=== PATIENT | male | born 1995 | race Caucasian/White ===

== ENCOUNTER 2018-12-03 11:25 | Emergency (ER) | payer OTHER, SELFPAY ==
[~2018-12-03] VITALS: Ht 185.4 cm; Wt 134.0 kg
[2018-12-03] MEDS ORDERED: METF-414 PO (11:30)
[2018-12-03] MEDS ORDERED: OLANZAPINE 10MG TABLET PO STA (11:36)
[2018-12-03] MEDS ORDERED: LORAZEPAM 1MG TABLET PO ONE (11:45)
[2018-12-03 11:49] VITALS: BP 115/75
[2018-12-03 18:46] LABS: BASOPHILS % 0.2 % (0.0-2.0); EOSINOPHILS % 0.7 % (0.0-5.0); HEMATOCRIT. 35.9 % (42.0-52.0); HEMOGLOBIN. 11.7 g/dL (14.0-18.0); LYMPHOCYTES % 39.4 % (20.0-50.0); MEAN CORPUSCULAR HEMOGLOBIN 27.7 pg (28.0-32.0); MONOCYTES % 11.8 % (2.0-8.0); NEUTROPHILS % 47.9 % (40.0-76.0); PLATELET 161 x1000/uL (130-400); RED BLOOD CELL COUNT 4.22 mill/uL (4.7-6.1); RED CELL DISTRIBUTION WIDTH 14.6 % (11.6-14.6)
[2018-12-03 18:51] LABS: CHLORIDE 110 mEq/L (98-107)
[2018-12-03 18:55] LABS: ETHANOL BLOOD < 10 mg/dL
== END 2018-12-03 11:59 | disposition home or self-care (01) ==
LOC: ER 11:25
DX: F29 Unspecified psychosis not due to a substance or known physiological condition (principal); F31.9 Bipolar disorder, unspecified; E11.9 Type 2 diabetes mellitus without complications; I10 Essential (primary) hypertension
CPT/HCPCS: 36415; 80320; 99284; G0480

== ENCOUNTER 2018-12-03 17:19 | Emergency (ER) | payer SELFPAY ==
[~2018-12-03] VITALS: Ht 188 cm; Wt 113.0 kg
[~2018-12-03 17:19] MED LIST: METF-414 PO
[2018-12-03 21:17] LABS: BASOPHILS % 1.3 % (0.0-2.0); EOSINOPHILS % 1.4 % (0.0-5.0); HEMATOCRIT. 35.3 % (42.0-52.0); HEMOGLOBIN. 11.6 g/dL (14.0-18.0); LYMPHOCYTES % 45.5 % (20.0-50.0); MEAN CORPUSCULAR HEMOGLOBIN 27.7 pg (28.0-32.0); MEAN CORPUSCULAR VOLUME 84.5 fL (80.0-94.0); MEAN PLATELET VOLUME 11.5 fl (7.4-10.4); MONOCYTES % 10.7 % (2.0-8.0); NEUTROPHILS % 41.1 % (40.0-76.0); PLATELET 167 x1000/uL (130-400); RED BLOOD CELL COUNT 4.18 mill/uL (4.7-6.1); RED CELL DISTRIBUTION WIDTH 14.4 % (11.6-14.6)
[2018-12-03 21:22] LABS: CHLORIDE 109 mEq/L (98-107)
[2018-12-03 21:26] LABS: ETHANOL BLOOD < 10 mg/dL
[2018-12-03 21:29] LABS: CLARITY URINE TURBID (CLEAR); COLOR URINE DARK YELLOW (YELLOW); KETONES URINE NEGATIVE (NEGATIVE); LEUKOCYTE ESTERASE URINE NEGATIVE (NEGATIVE); NITRITE URINE NEGATIVE (NEGATIVE); OCCULT BLOOD URINE NEGATIVE (NEGATIVE); PH URINE 5.5 (4.5-8.0); PROTEIN URINE NEGATIVE (NEGATIVE); SPECIFIC GRAVITY URINE 1.033 (1.005-1.030); UROBILINOGEN URINE 0.2 E.U./dL (0.2-1.0)
[2018-12-03 21:44] LABS: *AMPHETAMINES SCREEN URINE PRESUMTIVE POSITIVE (NEGATIVE); *BARBITURATES SCREEN URINE NEGATIVE (NEGATIVE); *BENZODIAZEPINES SCREEN URINE NEGATIVE (NEGATIVE); *COCAINE SCREEN URINE NEGATIVE (NEGATIVE)
[2018-12-03 21:45] LABS: CANNABINOID URINE SCREEN PRESUMTIVE POSITIVE (NEGATIVE); METHADONE URINE SCREEN NEGATIVE (NEGATIVE); OPIATES URINE SCREEN NEGATIVE (NEGATIVE); PHENCYCLIDINE URINE SCREEN NEGATIVE (NEGATIVE)
[2018-12-04] MEDS ORDERED: OLANZAPINE 5MG TABLET ODT PO ONE (20:45)
[2018-12-05] MEDS ORDERED: LORAZEPAM 1MG TABLET PO ONE (10:00)
[2018-12-05] MEDS ORDERED: BENZTROPINE MESYLATE 1MG/1ML 2ML AMP IM ONE (10:00)
[2018-12-05] MEDS ORDERED: HALOPERIDOL 5MG TABLET PO ONE (10:00)
[2018-12-05 13:10] VITALS: BP 128/84
== END 2018-12-05 15:08 ==
LOC: ER 17:19
DX: R44.0 Auditory hallucinations (principal); R45.851 Suicidal ideations; F15.10 Other stimulant abuse, uncomplicated; F12.10 Cannabis abuse, uncomplicated; F16.10 Hallucinogen abuse, uncomplicated; D64.9 Anemia, unspecified; F31.9 Bipolar disorder, unspecified; E11.9 Type 2 diabetes mellitus without complications; I10 Essential (primary) hypertension
CPT/HCPCS: 36415; 80053; 80305; 80320; 81003; 82962; 85025; 99285; J0515; J1630; Z7610; G0480